=== PATIENT | male | born 1965 | race Caucasian/White ===

== ENCOUNTER 2018-01-08 13:31 | Observation (INO) ==
[2018-01-08] MEDS ORDERED: 0.9 % Sodium Chloride 500 ML IVC ONE (13:37)
--- NOTE | 2018-01-08 13:40 | Emergency Department Note ---
Disposition Clinical Impression: Chest pain Qualifiers: Chest pain type: unspecified Qualified Code(s): R07.9 - Chest pain, unspecified Disposition: Admitted As Inpatient Condition: Good Time of Disposition: 16:05 Chest Pain HPI - General Stated Complaint: chest pain Time Seen by Provider: 01/08/18 13:37 Source: patient Mode of arrival: ambulatory Limitations: no limitations Vital Signs Reviewed: Yes Nursing Notes Reviewed: Yes - History of Present Illness HPI Narrative: Patient presents to the ED if the chief complaint of chest pain. Was sitting in his vehicle and had the abrupt onset of left-sided chest discomfort that was a heavy pressure. Radiated to his left back and left arm. Associated with shortness of breath. Some nausea but no vomiting. Is never had pain like this in the past. Does smoke and has a history of hypertension as well as a family history of heart disease. Unknown if he is high cholesterol. States the pain is still there, but is almost gone. - Related Data Home Medications Medication Instructions Recorded Confirmed Aspirin Enteric Coated [Aspirin EC] 81 mg PO DAILY 01/08/18 01/08/18 Cholecalciferol (D-3) [Vitamin D] 1,000 unit PO DAILY 01/08/18 01/08/18 Cyanocobalamin (Vitamin B-12) 1,000 mcg PO DAILY 01/08/18 01/08/18 [Vitamin B-12] Levothyroxine [Synthroid] 75 mcg PO 0630 01/08/18 01/08/18 Omeprazole [PriLOSEC] 20 mg PO BIDAC 01/08/18 01/08/18 Rosuvastatin Calcium [Crestor] 10 mg PO HS 01/08/18 01/08/18 Allergies Allergy/AdvReac Type Severity Reaction Status Date / Time No Known Allergies Allergy Verified 01/08/18 16:15 Review of Systems: As reviewed in the HPI. All other systems reviewed are negative or normal. Physical Exam CONSTITUTIONAL: [well appearing, alert and in no acute distress] EYES: [EOMI, clear conjunctiva, PERRLA] HENT: [Normocephalic, atraumatic, moist mucus membranes, normal oropharynx] NECK: [normal inspection, full ROM, trachea midline, no obvious swelling] PULMONARY: [normal lung sounds bilaterally, normal chest rise and fall, no respiratory distress or stridor, no wheezes, no rales, no rhonchi CARDIOVASCULAR: [regular rate, regular rhythm, normal heart sounds, no murmurs, distal extremities are warm and well perfused, patient does have reproducible pain, but states that this is different than his previous pain] GASTROINSTESTINAL: [soft, non-tender, non-rigid, non-distended, no guarding, no rebound, normal bowel sounds] GENITOURINARY/RECTAL: [deferred] NEUROLOGIC: [Alert, oriented x3, normal speech, moves all extremities] EXTREMITIES: [Normal inspection, full ROM, no tenderness, no pedal edema, normal capillary refill] MUSCULOSKELETAL: [no gross deformities, atraumatic] SKIN: [No cyanosis, no diaphoresis, normal color, warm, no rash] PSYCHIATRIC: [normal mood and affect] Course Course Narrative: patient presenting with CP. HEART score is 4. Will get labs and admit Vital Signs Temperature 98.7 F 01/08/18 14:11 Pulse Rate 74 01/08/18 14:11 Respiratory Rate 14 01/08/18 14:11 Blood Pressure 125/97 01/08/18 14:11 O2 Sat by Pulse Oximetry 95 01/08/18 14:11 Temperature 98.7 F 01/08/18 14:11 Pulse Rate 69 01/08/18 15:12 Respiratory Rate 14 01/08/18 16:54 Blood Pressure 119/82 01/08/18 16:54 O2 Sat by Pulse Oximetry 100 01/08/18 15:12 Oxygen Delivery Oxygen Delivery Room Air Chest Pain - MDM Narrative Medical decision making narrative: 1500 hrs.: Patient's labs were finally drawn by lab. Patient started having chest pain again disorder and nitroglycerin trial. Chest X-Ray 01/08/18 13:38 IMPRESSION: 1. No active pulmonary disease. D/ / Nitin Leonardo MD / Nitin Leonardo MD Interpreting Provider: Nitin Leonardo MD 1612 hrs.: Going to given bring him into the hospital he is in agreement with this plan. Chest pain rule out ACS. - Medical Records Medical records reviewed: Yes I reviewed the patient's medical records. - Lab Data Lab results reviewed: Yes I reviewed the patient's lab results. Result diagrams: 01/08/18 14:50 01/08/18 14:50 Lab Results 01/08/18 01/08/18 01/08/18 Range/Units 14:50 14:50 14:50 WBC 9.7 (4.3-11.1) K/mcL RBC 5.05 (4.19-5.50) M/mcL Hgb 15.7 (12.9-16.9) g/dL Hct 47.4 (37.5-50.1) % MCV 93.9 (83.0-100.0) fL MCH 31.1 (28.0-33.3) pg MCHC 33.1 (31.6-35.5) g/dL RDW 12.8 (11.5-14.5) % Plt Count 264 (140-400) K/mcL MPV 10.0 (9.4-12.4) fL Immature Gran % 0.3 (0-4) % Seg Neutrophils % 51.4 % Lymphocytes % 34.3 % Monocytes % 8.3 % Eosinophils % 4.9 % Basophils % 0.8 % Neutrophils # 5.0 (1.6-8.9) K/mcL Lymphocytes # 3.3 (0.6-4.6) K/mcL Monocytes # 0.8 (0.0-1.3) K/mcL Eosinophils # 0.5 (0.0-0.6) K/mcL Basophils # 0.1 (0.0-0.2) K/mcL D-Dimer 382 (0-500) ng/mLFEU Sodium 140 (136-145) mEq/L Potassium 3.8 (3.5-5.1) mEq/L Chloride 108 H (98-107) mEq/L Carbon Dioxide 25 (23-29) mEq/L BUN 7 (6-20) mg/dL Creatinine 0.83 (0.70-1.30) mg/dL Est GFR ( Amer) > 60 (> 60) Est GFR (Non-Af Amer) > 60 (> 60) BUN/Creatinine Ratio 8 (6-26) Glucose 125 H (70-105) mg/dL Calculated Osmolality 289 (280-300) Calcium 9.5 (8.6-10.3) mg/dL Troponin I < 0.03 (< 0.04) ng/mL - Radiology Data Radiology results reviewed: Yes I reviewed the patient's radiology results. - EKG Data EKG attestation: Yes I reviewed and interpreted this EKG. EKG results narrative: NSR, rate 71, normal axis, no ischemic changes Heart Score - Score History: Moderately Suspicious EKG: Normal Age: 45-65 Risk Factors: Equal/Greater than 3 risk factor or history of atherosclerotic disease Troponin: Less than normal limit HEART Score Total: 4 Attestation Statement - Attestation Attestation: This documentation is done with the assistance of Dragon dictation. Despite efforts made to ensure accuracy, there may be inaccuracies in editor newspaper or spelling and typographical errors. I examined this patient and my medical decision-making was reviewed with the Resident Physician. I agree with the documented findings, disposition and treatment plan as described except to the extent set forth below. Patient seen and evaluated on arrival with EMS and Dr. Savage, I agree with his evaluation and management plan, suprascapular the patient's stay. Patient was at work today sitting in the car developed back chest and left arm pain. No history of cardiac disease in the past. He had an EKG done there which showed no acute changes. He had aspirin and nitroglycerin which did not change a whole lot. He is a smoker does have high cholesterol. Regular cardiac workup on him and then reassess.
[2018-01-08] MEDS ORDERED: Nitroglycerin 0.4 MG TAB.SUBL SL ONE (15:09)
[2018-01-08] MEDS: Nitroglycerin 0.4 MG TAB.SUBL SL PRN ×2 (15:10→15:18)
[2018-01-08 15:15] LABS: Basophils # 0.1 K/mcL (0.0-0.2); Basophils % 0.8 %; Eosinophils # 0.5 K/mcL (0.0-0.6); Eosinophils % 4.9 %; Hematocrit 47.4 % (37.5-50.1); Hemoglobin 15.7 g/dL (12.9-16.9); Immature Granulocytes % 0.3 % (0-4); Lymphocytes # 3.3 K/mcL (0.6-4.6); Lymphocytes % 34.3 %; Mean Corpuscular HGB Conc 33.1 g/dL (31.6-35.5); Mean Corpuscular Hemoglobin 31.1 pg (28.0-33.3); Mean Corpuscular Volume 93.9 fL (83.0-100.0); Monocytes # 0.8 K/mcL (0.0-1.3); Monocytes % 8.3 %; Platelet Count 264 K/mcL (140-400); Red Blood Count 5.05 M/mcL (4.19-5.50); Red Cell Distribution Width 12.8 % (11.5-14.5); Segmented Neutrophils % 51.4 %
[2018-01-08 15:35] LABS: Troponin I < 0.03 ng/mL (< 0.04)
[2018-01-08 15:38] LABS: BUN/Creatinine Ratio 8 (6-26); Blood Urea Nitrogen 7 mg/dL (6-20); Calcium 9.5 mg/dL (8.6-10.3); Carbon Dioxide 25 mEq/L (23-29); Chloride 108 mEq/L (98-107); Glucose 125 mg/dL (70-105); Osmolality,Calculated 289 (280-300); Potassium 3.8 mEq/L (3.5-5.1); Sodium 140 mEq/L (136-145); eGFR For Non-African Americans > 60 (> 60)
[2018-01-08] MEDS ORDERED: Naloxone 0.4 MG/ML INJ IVP PRN (16:22)
--- NOTE | 2018-01-08 17:16 | Internal Med History&Physical ---
Date of Encounter: 01/08/18 Time of Encounter: 05:00 Internal Medicine - H&P: HPI Chief complaint: chest pain History of present illness: Mr. Guadalupe is a 52 year old male with history of hypothyroidism, HLD and current every day smoker presented to [facility] Ed with complaint of chest pain. as per patietn he had just taken a lunch break adn was getting of his co workers car to walk to the restaurant where he developed sudden onset of left sided chest pain, squeezing and pressure like 7/10, persistent, radiating to hes left arm, associated with nausea snd diaphoresis. he was taken to a urgent care and as per patient his BP was elevated in the 190s. he as given ASA and NTG with improvement of his pain. currently he is chest pain free. he denies fever, chills, recent URI, Chest pain, SOB, palpitations, N/v/D. as per patient he has an extensive family history of heart disease. his father of an MS in his 50s, brother who is younger than patient has suffered 2x Mi and is s/p CABG. he denies ever having similar symptoms, reports he takes ASA everyday. he is current every day smoker and drinks 2 beers almost everyday. denies ever being hospitalized for alcohol related problems. In [facility] ED CXR did not show any acute disease, troponin was WNL, EKG was sinus rhythm with out acute changes, he was endorsed for admission as his heart score was 4 Past Med Surg Social Fam HX - Past Medical History Medical history: GERD, hyperlipidemia, thyroid disease Psychiatric history: no psych history - Social History Smoking Status: Current every day smoker Smokeless Tobacco Status: No Alcohol use: occasionally Drug use: none Internal Medicine - H&P: Meds Aspirin Enteric Coated [Aspirin EC] 81 mg PO DAILY 01/08/18 [History] Cholecalciferol (D-3) [Vitamin D] 1,000 unit PO DAILY 01/08/18 [History] Cyanocobalamin (Vitamin B-12) [Vitamin B-12] 1,000 mcg PO DAILY 01/08/18 [ History] Levothyroxine [Synthroid] 75 mcg PO 0630 01/08/18 [History] Omeprazole [PriLOSEC] 20 mg PO BIDAC 01/08/18 [History] Rosuvastatin Calcium [Crestor] 10 mg PO HS 01/08/18 [History] 3 Allergy/AdvReac Type Severity Reaction Status Date / Time No Known Allergies Allergy Verified 01/08/18 16:15 All Systems PM: review of systems was performed and is negative for pertinent findings except as documented above in the HPI. - Constitutional Vitals: Temp Pulse Resp BP Pulse Ox 98.7 F 69 14 119/82 100 01/08/18 14:11 01/08/18 15:12 01/08/18 16:54 01/08/18 16:54 01/08/18 15:12 Exam: General: Patient is alert, oriented, no acute distress, Head: atraumatic, normocephalic, Eye: normal appearance, PERRL, no scleral icterus, no conjunctival injection ENT: mucous membranes moist, normal external ear exam Neck: normal inspection, trachea midline, full ROM, no carotid bruits Chest: normal inspection, symmetric chest rise Respiratory: Good respiratory effort. Bilateral breath sounds are clear without wheezing, crackles, or rhonchi. Cardiovascular: Regular rate and rhythm. s1 and s2 No clicks, rubs, gallops, or murmors. Abdomen: Bowel sounds present normoactive x-4 quadrants. Abdomen is soft, nondistended. no Epigastric tenderness. No guarding or rebound. No organomegaly noted, obese musculoskeletal: Spontaneously moving all extremities. no edema, no calf tenderness Skin: warm, dry, intact. Neuro: Alert and oriented x4. Sensation light touch intact. Cranial nerves 2- 12 is intact. Not aphasic, gait is steady, rapid hand movements intact, finger- to-nose intact, Psych: Patient's affect is normal Internal Med - H&P Results - Labs CBC & Chem 7: 01/08/18 14:50 01/08/18 14:50 - EKG Data -: EKG Interpreted by Myself EKG shows normal: sinus rhythm Rate: normal - Assessment and plan (1) Chest pain Current Visit: Yes Status: Acute Assessment and plan: chest pain r/o ACS first troponin negative follow troponins and EKG Q6H received ASA and NTG in the ED continue ASA 81 mg daily continue statins if he develops chest pain again, ekg changes or elevated troponins consider loading with ASA and plavix and starting hepari drip along with cardiology consultation TTE in the AM stress test in the AM ( extensive family history, HLD, smoker) Lipid panel, TSH along with Am labs utox tele monitoring currently BP is stable and HR is <70 - will continue to monitor vitals as per protocol CXR 01/08- FINDINGS: The heart size is within normal limits. The pulmonary vasculature is also within normal limits. No acute infiltrates are seen. The costophrenic angles are sharp bilaterally. No pneumothoraces are noted. Qualifiers: Chest pain type: precordial pain Qualified Code(s): R07.2 - Precordial pain (2) HLD (hyperlipidemia) Current Visit: Yes Status: Acute Assessment and plan: continue statins Qualifiers: Hyperlipidemia type: unspecified Qualified Code(s): E78.5 - Hyperlipidemia , unspecified (3) Smoker Current Visit: Yes Status: Acute Assessment and plan: was counseled on smoking cessation (4) Hypothyroidism Current Visit: Yes Status: Acute Assessment and plan: continue synthroid Qualifiers: Hypothyroidism type: acquired Qualified Code(s): E03.9 - Hypothyroidism, unspecified (5) DVT prophylaxis Current Visit: Yes Status: Acute Assessment and plan: heparin SC - Time Spent With Patient Total time spent is greater than 50% in coordination of care (as documented) at patient's floor/unit and/or counseling patient:
[2018-01-08] MEDS: *HR* Heparin 5,000 UNIT/ML VIAL SQ SCH (20:30)
[2018-01-09 03:30] LABS: Eosinophils % 5.8 %; Hematocrit 46.3 % (37.5-50.1); Hemoglobin 15.4 g/dL (12.9-16.9); Immature Granulocytes % 0.3 % (0-4); Lymphocytes % 31.2 %; Mean Corpuscular HGB Conc 33.3 g/dL (31.6-35.5); Mean Corpuscular Hemoglobin 30.7 pg (28.0-33.3); Mean Corpuscular Volume 92.2 fL (83.0-100.0); Mean Platelet Volume 9.8 fL (9.4-12.4); Monocytes % 9.2 %; Platelet Count 238 K/mcL (140-400); Red Blood Count 5.02 M/mcL (4.19-5.50); Red Cell Distribution Width 12.9 % (11.5-14.5); Segmented Neutrophils % 52.9 %
[2018-01-09 03:31] LABS: Basophils # 0.1 K/mcL (0.0-0.2); Basophils % 0.6 %; Eosinophils # 0.6 K/mcL (0.0-0.6); Monocytes # 0.9 K/mcL (0.0-1.3)
[2018-01-09 03:39] LABS: INR 0.9; Prothrombin Time 10.5 Seconds (9.4-12.1)
[2018-01-09 03:42] LABS: Activated Partial Thrombo Time 33.4 Seconds (26.0-36.0)
[2018-01-09 03:47] LABS: BUN/Creatinine Ratio 9 (6-26); Blood Urea Nitrogen 8 mg/dL (6-20); Carbon Dioxide 23 mEq/L (23-29); Chloride 110 mEq/L (98-107); Chol/HDL Ratio 6.6 (0-4.9); Cholesterol 191 mg/dL (< 200); Glucose 129 mg/dL (70-105); HDL Cholesterol 29 mg/dL (40-59); LDL Cholesterol,Calculated 90 mg/dL (0-99); Magnesium 2.5 mg/dL (1.6-2.6); Osmolality,Calculated 290 (280-300); Potassium 3.9 mEq/L (3.5-5.1); Sodium 140 mEq/L (136-145); Triglycerides 360 mg/dL (< 150); eGFR For Non-African Americans > 60 (> 60)
[2018-01-09 03:48] LABS: Troponin I < 0.03 ng/mL (< 0.04)
[2018-01-09 04:01] LABS: Thyroid Stimulating Hormone 1.545 mcIU/mL (0.340-5.600)
[2018-01-09] MEDS: *HR* Heparin 5,000 UNIT/ML VIAL SQ SCH ×2 (05:29→13:23)
[2018-01-09] MEDS ORDERED: Regadenoson 0.4 MG/5 ML SYRINGE IVP ONE (08:54)
[2018-01-09] MEDS ORDERED: Aspirin Enteric Coated 81 MG Tablet PO SCH (09:00)
[2018-01-09] MEDS ORDERED: Cholecalciferol (D-3) 1,000 UNIT TABLET PO SCH (09:00)
[2018-01-09] MEDS ORDERED: Cyanocobalamin (B-12) 1,000 MCG TABLET PO SCH (09:00)
[2018-01-09 11:43] VITALS: BP 135/82
[2018-01-09 11:48] LABS: Bilirubin,Urine Negative (Negative); Blood,Urine Negative (Negative); Clarity,Urine Clear (Clear); Color,Urine Yellow (Yellow); Glucose,Urine (UA) Normal (Normal); Ketones,Urine Negative (Negative); Leukocyte Esterase,Urine Negative (Negative); Nitrite,Urine Negative (Negative); PH,Urine 6.5 pH Units (5.0-8.0); Protein,Urine Negative (Neg-Trace); Urobilinogen,Urine Normal (Normal)
--- NOTE | 2018-01-09 14:10 | Discharge Summary ---
- NOTES TO OUTPATIENT PROVIDER Notes to Outpatient Provider: follow up with PCP to have lipid panels/ BP rechecked Orders not resulted at time of discharge: Pending orders 01/09/18 08:29 NM christiane perf SPECT multi [NM] Routine Date of Encounter: 01/09/18 Time of Encounter: 14:03 - Discharge Diagnosis (1) Chest pain Priority: Primary Status: Acute Qualifiers: Chest pain type: precordial pain Qualified Code(s): R07.2 - Precordial pain (2) HLD (hyperlipidemia) Priority: Secondary Status: Acute Qualifiers: Hyperlipidemia type: unspecified Qualified Code(s): E78.5 - Hyperlipidemia , unspecified (3) Smoker Priority: Secondary Status: Acute (4) Hypothyroidism Priority: Secondary Status: Acute Qualifiers: Hypothyroidism type: acquired Qualified Code(s): E03.9 - Hypothyroidism, unspecified (5) DVT prophylaxis Priority: Secondary Status: Acute Hospital course: Mr. Guadalupe is a 52 year old male with history of hypothyroidism, HLD and current every day smoker presented to the Ed with complaint of chest pain. as per patient he had just taken a lunch break adn was getting of his co workers car to walk to the restaurant where he developed sudden onset of left sided chest pain, squeezing and pressure like 7/10, persistent, radiating to hes left arm, associated with nausea snd diaphoresis. he was taken to a urgent care and as per patient his BP was elevated in the 190s. he as given ASA and NTG with improvement of his pain. currently he is chest pain free. he denies fever, chills, recent URI, Chest pain, SOB, palpitations, N/v/D. as per patient he has an extensive family history of heart disease. his father of an AR in his 50s, brother who is younger than patient has suffered 2x Mi and is s/p CABG. he denies ever having similar symptoms, reports he takes ASA everyday. he is current every day smoker and drinks 2 beers almost everyday. denies ever being hospitalized for alcohol related problems. In the ED CXR did not show any acute disease, troponin was WNL, EKG was sinus rhythm with out acute changes, he was endorsed for admission as his heart score was 4. D-Dimer WNL (382) he was admitted and followed on telemetry. troponins were followed and negative. EKG did not show any acute ST-T changes. TTE adn nuclear stress test performed- negative for ischemia and results below. lipid panel showed hyper TG, Rosuvastatin was increased to 20 mg daily. he was counseled on diet and nurtrition SBP in the 120s to 130s. coreg 3.125 started BID. BP monitoring KIT prescription provided for the patient. he is to take log to PCP for further adjustment. PCP to follow lipid panels in 4 weeks and adjusts statins. he was counseled extensively on smoking cessations. he was told to visit [facility] ED if he develops similar symptoms. TTE: Impressions: LVEF 55-60%. Normal LV chamber size, wall thickness and function. Indeterminate diastolic function. Normal right ventricular structure and function. No significant valvular dysfunction. NUC stress test : Pharmacologic ECG was negative for ischemia at the level of heart rate achieved. Gated EF = 70%. Perfusion imaging was negative for ischemia or infarct. There is a small sized, mild intensity, fixed perfusion defect in the apical and mid inferior segments suggestive of attenuation artifact CXR: IMPRESSION: 1. No active pulmonary diseas Time spent discussing smoking cessation with patient: more than 10 minutes - Time Spent with Patient Total time spent providing and/or coordinating discharge services: Less than 30 minutes - Discharge Medications Prescriptions: Blood Pressure Test Kit [Blood Pressure Kit] 1 each MC DAILY #1 kit Carvedilol [Coreg] 3.125 mg PO BIDWM 30 Days #60 tablet Rosuvastatin [Crestor] 20 mg PO HS #30 tablet Home Medications: Aspirin Enteric Coated [Aspirin EC] 81 mg PO DAILY 01/08/18 [History] Cholecalciferol (D-3) [Vitamin D] 1,000 unit PO DAILY 01/08/18 [History] Cyanocobalamin (Vitamin B-12) [Vitamin B-12] 1,000 mcg PO DAILY 01/08/18 [ History] Levothyroxine [Synthroid] 75 mcg PO 0630 01/08/18 [History] Omeprazole [PriLOSEC] 20 mg PO BIDAC 01/08/18 [History] Blood Pressure Test Kit [Blood Pressure Kit] 1 each MC DAILY #1 kit 01/09/18 [Rx ] Carvedilol [Coreg] 3.125 mg PO BIDWM 30 Days #60 tablet 01/09/18 [Rx] Rosuvastatin [Crestor] 20 mg PO HS #30 tablet 01/09/18 [Rx] Allergies/Adverse Reactions: 3 Allergy/AdvReac Type Severity Reaction Status Date / Time No Known Allergies Allergy Verified 01/08/18 16:15 Date of admission: 01/08/18 16:46 Primary care physician: Carmen Ponce CNP Consults: 01/09/18 07:06 Consult to Cardiology [CONS] Routine Comment: Consulting Provider: Cardiology Toma Reason for Consult: chest pain, extensive family history of premature cardiac and MIs, ordered stress test Call Completed: No - Constitutional Vitals: Temp Pulse Resp BP Pulse Ox 98.2 F 56 17 135/82 96 01/09/18 11:41 01/09/18 11:41 01/09/18 11:41 01/09/18 11:41 01/09/18 11:41 Exam: General: Patient is alert, oriented, no acute distress, Head: atraumatic, normocephalic, Eye: normal appearance, PERRL, no scleral icterus, no conjunctival injection ENT: mucous membranes moist, normal external ear exam Neck: normal inspection, trachea midline, full ROM, no carotid bruits Chest: normal inspection, symmetric chest rise Respiratory: Good respiratory effort. Bilateral breath sounds are clear without wheezing, crackles, or rhonchi. Cardiovascular: Regular rate and rhythm. s1 and s2 No clicks, rubs, gallops, or murmors. Abdomen: Bowel sounds present normoactive x-4 quadrants. Abdomen is soft, nondistended. no Epigastric tenderness. No guarding or rebound. No organomegaly noted, obese musculoskeletal: Spontaneously moving all extremities. no edema, no calf tenderness Skin: warm, dry, intact. Neuro: Alert and oriented x4. Sensation light touch intact. Cranial nerves 2- 12 is intact. Not aphasic, gait is steady, rapid hand movements intact, finger- to-nose intact, Psych: Patient's affect is normal - Patient Status Disposition: Home, Self-Care Condition: Good Functional capacity at discharge: independent ambulation Overall status at discharge: patient is progressing back to baseline - Discharge Instructions Follow Up With: Carmen Ponce CNP [Primary Care Provider] - Forms: ED Satisfaction Letter - Diet and Activity Activity: increase activity as tolerated Diet: low fat, low cholesterol
[2018-01-09 14:20] LABS: Amphetamine Screen,Urine Negative ng/mL (Cutoff=1000); Barbiturate Screen,Urine Negative ng/mL (Cutoff=200); Benzodiazepines Screen,Urine Negative ng/mL (Cutoff=200); Cannabinoid Screen,Urine Negative ng/mL (Cutoff = 50); Cocaine Screen,Urine Negative ng/mL (Cutoff= 300); Opiate Screen,Urine Negative ng/mL (Cutoff=300); Phencyclidine Screen,Urine Negative ng/mL (Cutoff=25)
--- NOTE | 2018-01-11 11:26 | Electrocardiograph Report ---
[address] [address] Test Date: 2018-01-08 Pat Name: Nilton Guadalupe Department: [id number] Room: 3B16 Gender: M State Editor: : 1965 Requested By: Michel Savage Order Number: [id number] Reading MD: Claire Saldaña Measurements Intervals [place] Rate: 76 P: 66 DE: 147 QRS: 72 QRSD: 99 T: 49 QT: 397 QTc: 447 Interpretive Statements Sinus rhythm Electronically Signed On 01-11-2018 11:24:52 EDT by Claire Saldaña
== END 2018-01-09 15:31 | disposition home or self-care (01) ==
LOC: EMEROOARM 13:31 → 3BNU 13:31
PROVIDERS: ADMIT Internal Medicine; ATTEND Internal Medicine